=== PATIENT | male | born 1995 | race African-American/Black ===

== ENCOUNTER 2024-09-30 21:29 | Emergency (ER) | payer OTHER, SELFPAY ==
--- OUTSIDE RECORDS SUMMARY | 2024-09-30 21:31 | XMS_ITS | Encounter Summary ---
Author Organization [email or web address] Address [address] [place] [address] Care Team Providers Care Head Holder Name Role Phone Unassigned, Provider Primary Care Provider Unava ilable Reason for Visit * Reason Comments Shoulder Problem * Therapies (Routine) - Work Comp Specialty Diagnoses / Procedures Referred By Contac t Referred To Contact Physical Therapist / Physical Therapy Diagnoses WC // Lt shoulder Procedures CONSULT Clinician, Not Found, [place] [address] [place] [address] [facility] [place] [address] Phone: tel: fax: Referral ID Status Reason Start Date Expiration Date V isits Requested Visits Authorized [id number] Work Comp 09/16/2024 12/16/2025 12 12 Encounter Details Date Type Department Care Team (Late st Contact Info) Description 09/24/2024 5:00 PM CDT Therapy [facility] [address] [id number] [place] [address] [place], [place] [phone] Acute pain of left shoulder (Primary Dx) Social History Tobacco Use Types Packs/Day Years Used Date Smoking Tobacco: Never Assessed Sex and Gender Information Value Date Recorded Sex Assigned at Not on file Legal Sex Male 5:20 AM CDT Gender Identity Not on file Sexual Orientation Not on file documented as of this encounter Progress Notes * Ruddy Hardy, PT - 09/24/2024 5:00 PM CDT Physical Therapy Progress Note Visit Number: 2 Initial Certification Period: 09/16/2024 to 12/15/24 Referring Provider: Not Found Clinician Visit Diagnosis: Acute pain of left shoulder Precautions: None SUBJECTIVE: Pt is doing well and willing to participate in therapy. He states that the pain feels about the same as last time. OBJECTIVE Current Objective Findings: Mild tenderness to clavicular insertion of pec major. Still discomfort in attempting to reach behind belt. Treatment/Education Today: Manual therapy performed consisting of STM/CFM to Pec Major and Pec Minor. Joint mobilizations consisting of Posterior Flat Top and Inferior glide to Glenohumeral Joint. X10 minutes: 1 Therapeutic exercise to promote strength to rotator cuff and periscapular musculature as well as flexibility to different insertion points of pec major. 30 min: 2 In clinic: -Arm bike x 5 min -TRX row 2x10 (till fatigue). -TRX reverse fly 2x4 (till fatigue). (Supersetted with row) - Alternating concentric/eccentric sidelying external rotation with therapist resistance. 2x till fatigue -serratus wall ball circles but d/c d/t pt discomfort. HEP outlined below Timed Code Treatment Minutes: Total Treatment Minutes: 40 Current Home Exercise Program List: Access Code: [email or web address] URL: [email or web address] Date: 09/24/2024 Prepared by: Ruddy Defriend Exercises - Prone Scapular Retraction Arms at Side - 1-2 x daily - 7 x weekly - 3 sets - 10-20 reps with 3 sec hold - Isometric Shoulder External Rotation at Wall - 1-2 x daily - 7 x weekly - 5-10 sets - 10sec hold - Single Arm Doorway Pec Stretch at 90 Degrees Abduction - 1 x daily - 7 x weekly - 3 sets - 30 sec ASSESSMENT/PROGRESS TOWARD GOALS: Pt tolerated session well and demonstrated progress as he was able to tolerate STM to pec major compared to last visit, light pec stretches, and rotator cuff/periscapular strengthening. He continues to experience deficits in UE strength/activity tolerance, guarding with pain, and decreased tissue fl exibility, impairing pt's ability to perform ADLs and work without pain, compromising his overall fxn. He would continue to benefit from pt to improve deficits and overall fxn to make progress towards fxnal goals. Functional Goals/Outcomes: HEP/Independent Management: Demonstrate independence with HEP and self- management following each treatment session ADL's: Resume previous sleep pattern without awakening due to symptoms in 6 weeks. Dress, including don and doff shirt and pants with ease in 6 weeks. Reach overhead to complete household tasks with ease in 12 weeks. Work: Complete a full day of work with little to no increase in symptoms within physician restrictions in 12 weeks All progressing PLAN: STM to pec major/minor, manual and self stretching, further facilitation of rotator cuff and periscapular complexes, strengthening. documented in this encounter Plan of Treatment Upcoming Encounters Date Type Department Care Team (Late st Contact Info) Description 10/01/2024 5:00 PM CDT Appointment [facility] [address] [address] [place] [address] [place] [address] documented as of this encounter Visit Diagnoses Diagnosis Acute pain of left shoulder- Primary documented in this encounter Care Teams Head Holder Relationship Specialty Start Date End Date Unassigned, Provider [address] [place] [address] PCP - General 12/29/01 documented as of this encounter
--- OUTSIDE RECORDS SUMMARY | 2024-09-30 21:31 | XMS_ITS | Clinical Summary ---
Author Organization [facility] Address [address] [place] [address] Care Team Providers Care Diesel Locomotive Engineer Name Role Phone Unavailable Primary Care Provider Unavailabl e Allergies Active Allergy Reactions Criticality Noted Date Comments Amoxicillin Hives 12/01/2002 Azithromycin Rash 01/23/2005 Medications No known medications Active Problems Problem Noted Date Diagnosed Date Mild persistent asthma 01/22/2011 Ankle sprain and strain 10/11/2010 Intermittent asthma 08/07/2010 Obesity 01/19/2004 Overview (03/31/2015): Problem list name updated by automated process. Provider to review Attention deficit disorder 08/23/2003 Overview (03/31/2015): No longer needing treatment Problem list name updated by automated process. Provider to review Resolved Problems Problem Noted Date Diagnosed Date Resolved Date Sprain of medial collateral ligament of knee 9 09/05/2010 Pain in joint, lower leg 01/15/200701/2011 Mild intermittent asthma 04/03/200612/2010 Hypertrophy of breast 01/19/20042010 Asthma 10/05/2003 02/21/2006 Overview (03/31/2015): Problem list name updated by automated process. Provider to review Immunizations Name Administration Dates Next Due HEPA 01/22/2011,05/31/2010 HIB (PRP-T) 05/16/1994,1993,1993 ,1993 HPV 02/15/2012,07/02/2011,01/22/2011 HepB 09/16/1995,04/14/1995,02/20/1995 Historical DTP/aP 12/01/1997, 5,1993,1993, 1993 Influenza (IIV3) PF 05/31/2010,05/29/2007,2005,05/21/2003 MMR (MMRII) 12/01/1997,05/16/1994 Mantoux Tuberculin Skin Test 02/16/1994 Meningococcal ACWY (Menactra ) 09/15/2010 OPV, trivalent, live 12/01/1997,08/15/1994,03/31,08/06/1992 TD,PF 7+ (Tenivac) 01/16/2005 TDAP Vaccine (Adacel) 01/22/2011 Family History Medical History Relation Comments Cerebrovascular Disease Maternal Grandfather Hypertension Other 1 MGGrandmother Arthritis Other 2 MGGrandmother Alzheimer Disease Other 3 MGGrandfather Cerebrovascular Disease Paternal Grandfather Hypertension Paternal Grandfather Relation Status Comments Father Alive Maternal Grandfather Mother Alive Other 1 Other 2 Other 3 Paternal Grandfather Social History Tobacco Use Types Packs/Day Years Used Date Smoking Tobacco: Never Smokeless Tobacco: Never Alcohol Use Standard Drinks/Week Comments No 0 (1 standard drink = 0.6 oz pur e alcohol) Adolescent Education Answer Date Record ed Getting School Help Needed Not on file 03/24 Sex and Gender Information Value Date Recorded Sex Assigned at Not on file Legal Sex Male 4:23 AM HEAD SILVERMAN Gender Identity Not on file Sexual Orientation Not on file Last Filed Vital Signs Vital Sign Reading Time Taken Comments Blood Pressure 122/72 07/05/2020 1:03 PM HEAD SILVERMAN Pulse 96 07/05/2020 1:03 PM HEAD SILVERMAN Temperature 37.4 C (99.3 F) 07/05/2020 1:03 PM HEAD SILVERMAN Respiratory Rate 16 08/21/2012 5:42 PM HEAD SILVERMAN Oxygen Saturation 98% 01/14/2018 7:02 PM CDT Inhaled Oxygen Concentration - - Weight 140.6 kg (310 lb) 07/05/2020 1:03 PM HEAD SILVERMAN Height 177.8 cm (5' 10) 02/15/2012 10:29 AM CDT Body Mass Index 44.48 02/15/2012 10:29 AM CDT Plan of Treatment Not on file
--- OUTSIDE RECORDS SUMMARY | 2024-09-30 21:32 | XMS_ITS | Clinical Summary ---
Author Organization [facility] Address [address] [place] [address] Care Team Providers Care Heart Specialist Name Role Phone Unassigned, Provider Primary Care Provider Unava ilable Source Comments You are receiving this document as you are listed as the primary care provider,follow-up provider, or the patient has been referred to you for consultation.This is in compliance with the Medicare andGrant Hospital[facility] EHR Incentive Program,which states Providers who transition their patient to another setting of careor provider of care or refers their patient to another provider of care shouldprovide summary care record for each transition of care or referral. [facility] Encounters Date Type Department Care Team Description 09/24/2024 5:00 PM CDT Therapy [facility] [address] [address] Ruddy Hardy, PT Acute pain of left shoulder (Primary Dx) 09/16/2024 1:00 PM CDT Therapy [facility] [address] [address] Verenice Tejada, PT Acute pain of left shoulder (Primary Dx) from Last 3 Months Social History Tobacco Use Types Packs/Day Years Used Date Smoking Tobacco: Never Assessed Sex and Gender Information Value Date Recorded Sex Assigned at Not on file Legal Sex Male 5:20 AM CDT Gender Identity Not on file Sexual Orientation Not on file Plan of Treatment Upcoming Encounters Date Type Department Care Team (Late st Contact Info) Description 10/01/2024 5:00 PM CDT Appointment [facility] [address] [address] [place] [address] [place] [address] Health Maintenance Due Date Last Done Comments Hep C Screening (Preventive Services) 1993 DTaP/Tdap/Td (6 - Tdap) 01/17/2005 01/17/20, 12/01/1997, 08/15/1994, Additional history exists HIV Screening (Preventive Services) 2009 Adult Preventive Visit 2011 HepB (1) 02/12/2012 COVID-19 Vaccine ( season) 2024 Influenza (#1) 2024 Zoster/Shingles (1 of 2) 2043 IPV (Polio) Completed 12/01/1997, 08/01, 1993, Additional history exists MCV4 Completed 09/15/2010 HepA Completed 01/22/2011, 05/31/2010 HPV Vaccine Completed 02/15/2012, 08/2011, 01/22/2011 Hib Aged Out No longer eligi ble based on patient's age to complete this topic Meningococcal B Aged Out No longer el igible based on patient's age to complete this topic Pneumococcal Aged Out No longer eligi ble based on patient's age to complete this topic Insurance * Guarantor: MAREK STEVENS Account Type Relation to Patient Date of Phone Billing Address Personal/Family 1995 ([place]) [address] [place] [address] [employer] [place] Care Teams Heart Specialist Relationship Specialty Start Date End Date Unassigned, Provider [address] [place] [address] PCP - General 12/29/01
--- OUTSIDE RECORDS SUMMARY | 2024-09-30 21:32 | XMS_ITS | Encounter Summary ---
Author Organization [facility] Address [address] [facility] [place] [address] Care Team Providers Care Bander Hand Name Role Phone Eyal Avila MD Primary Care Provider Unavailable Encounter Details Date Type Department Care Team (Late st Contact Info) Description 01/26/2011 [facility] Medical Advice [facility] [id number] [place] [id number] [place] [address] [place], [place] [phone] Social History Tobacco Use Types Packs/Day Years Used Date Smoking Tobacco: Never Alcohol Use Standard Drinks/Week Comments No 0 (1 standard drink = 0.6 oz pur e alcohol) Sex and Gender Information Value Date Recorded Sex Assigned at Not on file Legal Sex Male 4:23 AM MOTH EXTERMINATOR Gender Identity Not on file Sexual Orientation Not on file documented as of this encounter Plan of Treatment Not on file documented as of this encounter Visit Diagnoses Not on filedocumented in this encounter Care Teams Bander Hand Relationship Specialty Start Date End Date Eyal Avila MD PCP - General 05/21/03 01/28/22 documented as of this encounter
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
[2024-09-30 21:34] VITALS: BP 138/91; PULSE 90; RESP 16; TEMP 36.6; O2SAT 98; BMI 44.8
--- NOTE | 2024-09-30 21:44 | CRLHL7_ITS ---
For Patients: As a result of the Century Cures Act, medical imaging exams and procedure reports are released immediately into your electronic medical record. You may view this report before your referring provider. If you have questions, please contact your health care provider. Indication: Trauma. Technique: Left foot, 3 views. Comparison: None. Findings/Impression: Bones: Alignment is normal. No displaced fractures or bone lesions. Joint spaces: Unremarkable. Soft tissues: Unremarkable. Dictated by Haile Miranda MD @ 09/30/2024 10:09:19 PM (Electronically Signed)
--- NOTE | 2024-09-30 21:44 | CRLHL7_ITS ---
For Patients: As a result of the Century Cures Act, medical imaging exams and procedure reports are released immediately into your electronic medical record. You may view this report before your referring provider. If you have questions, please contact your health care provider. Indication: Trauma. Technique: Left ankle, 3 views. Comparison: None. Findings/Impression: Bones: Alignment is normal. No displaced fractures or bone lesions. Joint spaces: Unremarkable. Soft tissues: Unremarkable. Dictated by Haile Miranda MD @ 09/30/2024 10:03:07 PM (Electronically Signed)
--- NOTE | 2024-09-30 21:53 | ED_ITS ---
HPI - Fall General Date Seen: 09/30/24 Chief Complaint: Fall/Minor Trauma Stated Complaint: fell down stairs, hurt left foot Time Seen by Provider: 09/30/24 21:33 Source: patient Mode of arrival: wheelchair Limitations: no limitations History of Present Illness HPI Narrative: Patient is a 29-year-old male presenting for left foot pain. He states he is walking on some steps when he slipped on them causing him to hurt his left foot. States his left arm got caught on the railing any hit the back of his head. This happened around 17:00. He had to run some errands afterwards started like coming immediately. Denies a headache, vision changes, weakness, numbness, photophobia, phonophobia. Denies any neurological symptoms. States his shoulder does not hurt at all anymore in his only pain is in his left foot. Initially did have some ankle pain but that has resolved. Related Data Home Medications ?Medication ?Instructions ?Recorded ?Confirmed naproxen 500 mg tablet 500 mg PO BID 09/30/24 09/30/24 Allergies Allergy/AdvReac Type Severity Reaction Status Date / Time amoxicillin Allergy Severe Verified 09/30/24 21:36 azithromycin (From Zithromax) AdvReac Verified 09/30/24 21:36 Review of Systems Status of ROS: Reports: 10 or more systems reviewed and unremarkable except as noted in History and below Exam Narrative: Exam Narrative: Const: Well-nourished, Well-developed, in mild distress Eyes: PERRL, no conjunctival injection, and symmetrical lids HENT: Atraumatic external nose and ears. Moist mucous membranes. CV: Dorsalis pedis pulse +2 bilaterally MSK:Extremities w/o deformity, Normal Active ROM, tenderness to the mid foot region on the left. No tenderness noted to rest of extremities. Skin: Warm, Dry. No rashes or lesions. Neuro: Normal Muscle tone, No focal neurological deficits. Psych: Awake, Alert, & Oriented x3. Appropriate mood and affect. Const: Vital Signs, click to edit/add: Vital Signs - 24 hr 09/30/24 21:34 Temperature 98 F Pulse Rate [Pulse Oximeter] 90 Respiratory Rate 16 Blood Pressure [Ri ght Upper Arm] 138/91 H Pulse Oximetry 98 Oxygen Delivery Me thod Room Air Course Vital Signs Vital signs: Initial Vital Signs Temperature 98 F 09/30/24 21:34 Temperature Source Temporal Artery Scan 09/30/24 21:34 Pulse Rate 90 09/30/24 21:34 Respiratory Rate 16 09/30/24 21:34 Blood Pressure 138/91 H 09/30/24 21:34 Blood Pressure Mean 106 H 09/30/24 21:34 Blood Pressure Position Sitting 09/30/24 21:34 Pulse Oximetry 98 09/30/24 21:34 Oxygen Delivery Method Room Air 09/30/24 21:34 Vital Signs Temperature 98 F 09/30/24 21:34 Pulse Rate 90 09/30/24 21:34 Respiratory Rate 16 09/30/24 21:34 Blood Pressure 138/91 H 09/30/24 21:34 Pulse Oximetry 98 09/30/24 21:34 Oxygen Delivery Method Room Air 09/30/24 21:34 Temperature 98 F 09/30/24 21:34 Pulse Rate 90 09/30/24 21:34 Respiratory Rate 16 09/30/24 21:34 Blood Pressure 138/91 H 09/30/24 21:34 Pulse Oximetry 98 09/30/24 21:34 Oxygen Delivery Method Room Air 09/30/24 21:34 MDM - Fall MDM Narrative Medical decision making narrative: Patient is a 29-year-old male presenting to the emergency department after a fall. He did hit his head but this was 4-1/2 hours ago now he is not having any neurological symptoms. Has full range of motion of his neck. I do not believe head or neck imaging is necessary. Is not having any pain or tenderness to his left shoulder. Has had able move the shoulder normally. Only pain is to his left foot. Will do an x-ray of his foot and ankle. X-rays reviewed by myself and the radiologist shows no acute abnormalities. Patient likely has a midfoot sprain. Will be discharged. He is agreeable to this plan. Imaging Data X-ray left ankle: Attestation: I have reviewed the pertinent imaging results. Radiologist's impression: Bones: Alignment is normal. No displaced fractures or bone lesions. Joint spaces: Unremarkable. Soft tissues: Unremarkable. Dictated by Haile Miranda MD @ 09/30/2024 10:03:07 PM X-ray left foot: Attestation: I have reviewed the pertinent imaging results. Radiologist's impression: Bones: Alignment is normal. No displaced fractures or bone lesions. Joint spaces: Unremarkable. Soft tissues: Unremarkable. Dictated by Haile Miranda MD @ 09/30/2024 10:09:19 PM Discharge Plan Discharge Clinical Impression: Sprain of foot, left Qualifiers: Encounter type: initial encounter Qualified Code(s): S93.602A - Unspecified sprain of left foot, initial encounter Patient Disposition: Home, Self-Care Condition: Stable Instructions: Foot Sprain (ED) Additional Instructions: Take Tylenol and ibuprofen for pain. Return to emergency department for new or worsening symptoms. Prescriptions: No Action naproxen 500 mg tablet 500 mg PO BID Follow Up/Referrals: Provider,Not a Local [Primary Care Provider] - Stand Alone Forms: [employer] Info Instructions
--- OUTSIDE RECORDS SUMMARY | 2024-09-30 22:02 | XMS_ITS | Clinical Summary ---
Author Organization [facility] Address [address] [place] [address] Care Team Providers Care English Lecturer Name Role Phone Unassigned, Provider Primary Care Provider Unava ilable Source Comments You are receiving this document as you are listed as the primary care provider,follow-up provider, or the patient has been referred to you for consultation.This is in compliance with the Medicare and[facility] Hospital[facility] EHR Incentive Program,which states Providers who transition their patient to another setting of careor provider of care or refers their patient to another provider of care shouldprovide summary care record for each transition of care or referral. [facility] Encounters Date Type Department Care Team Description 09/24/2024 5:00 PM CDT Therapy [facility] [address] [address] Ruddy Hardy, PT Acute pain of left shoulder (Primary Dx) 09/16/2024 1:00 PM CDT Therapy [facility] [address] [address] Verenice Tejada, PT Acute pain of left [...] 5:00 PM CDT Appointment [facility] [address] [address] [place] [address] [place] [address] Health Maintenance Due Date Last Done Comments [...] Date of Phone Billing Address Personal/Family 1993 ([place]) [address] [place] [address] [employer] Care Teams English Lecturer Relationship Specialty Start Date End Date Unassigned, Provider [address] [place] [address] PCP - General 12/29/01
--- OUTSIDE RECORDS SUMMARY | 2024-09-30 22:02 | XMS_ITS | Encounter Summary ---
Author Organization [facility] Address [address] [place] [address] Care Team Providers Care Floor Manager Name Role Phone Unassigned, Provider Primary Care Provider Unava ilable Reason for Visit * Reason Comments Shoulder Problem * Therapies (Routine) - Work Comp Specialty Diagnoses / Procedures Referred By Contac t Referred To Contact Physical Therapist / Physical Therapy Diagnoses WC // Lt shoulder Procedures CONSULT Clinician, Not Found, [place] [address] [place] [address] [facility] [place] [address] Phone: tel: fax: Referral ID Status Reason Start Date Expiration Date V isits Requested Visits Authorized [id number] Work Comp 09/16/2024 12/16/2025 12 12 Encounter Details Date Type Department Care Team (Late st Contact Info) Description 09/16/2024 1:00 PM CDT Therapy [facility] [address] [address] [place] [address] [facility] [place] [address] Acute pain of [...] as needed for correct performance. Access Code: [email or web address] Exercises - Supine Shoulder Horizontal Abduction with [...] 5:00 PM CDT Appointment [facility] [place] [id number] [place] [address] [place] [address] [place] [address] documented as of this encounter Visit Diagnoses Diagnosis Acute pain of left shoulder- Primary documented in this encounter Care Teams Floor Manager Relationship Specialty Start Date End Date Unassigned, Provider [address] [place] [address] PCP - General 12/29/01 documented as of this encounter
--- OUTSIDE RECORDS SUMMARY | 2024-09-30 22:02 | XMS_ITS | Encounter Summary ---
Author Organization [place] Address [address] [facility] [place] [address] Care Team Providers Care Aircraft Refueler Name Role Phone Eyal Avila MD Primary Care Provider Unavailable Encounter Details Date Type Department Care Team (Late st Contact Info) Description 01/26/2011 [facility] Medical Advice [facility] [address] [place] [id number] [place] [address] [place], [place] [phone] Social History Tobacco Use Types Packs/Day Years Used Date Smoking Tobacco: Never Alcohol Use Standard Drinks/Week Comments No 0 (1 standard drink = 0.6 oz pur e alcohol) Sex and Gender Information Value Date Recorded Sex Assigned at Not on file Legal Sex Male 4:23 AM VAT TENDER Gender Identity Not on file Sexual Orientation Not on file documented as of this encounter Plan of Treatment Not on file documented as of this encounter Visit Diagnoses Not on filedocumented in this encounter Care Teams Aircraft Refueler Relationship Specialty Start Date End Date Eyal Avila MD PCP - General 05/21/03 01/28/22 documented as of this encounter
--- OUTSIDE RECORDS SUMMARY | 2024-09-30 22:02 | XMS_ITS | Clinical Summary ---
Author Organization [place] Address [address] [facility] [address] Care Team Providers Care Eyedotter Name Role Phone Unavailable Primary Care Provider [...] on file Legal Sex Male 4:23 AM PORCELAIN WAXER Gender Identity Not on file Sexual Orientation Not on file Last Filed Vital Signs Vital Sign Reading Time Taken Comments Blood Pressure 122/72 07/05/2020 1:03 PM P[employer]CELAIN WAXER Pulse 96 07/05/2020 1:03 PM P[employer]CELAIN WAXER Temperature 37.4 C (99.3 F) 07/05/2020 1:03 PM PORCELAIN WAXER Respiratory Rate 16 08/21/2012 5:42 PM P[employer]CELAIN WAXER Oxygen Saturation 98% 01/14/2018 7:02 PM CDT Inhaled Oxygen Concentration - - Weight 140.6 kg (310 lb) 07/05/2020 1:03 PM PORCELAIN WAXER Height 177.8 cm (5' 10) 02/15/2012 10:29 AM CDT Body Mass Index 44.48 02/15/2012 10:29 AM CDT Plan of Treatment Not on file
--- OUTSIDE RECORDS SUMMARY | 2024-09-30 22:02 | XMS_ITS | Encounter Summary ---
Author Organization [facility] Address [address] [place] [address] Care Team Providers Care Esthetician/Skin Therapist Name Role Phone Unassigned, Provider Primary Care Provider Unava ilable Reason for Visit * Reason Comments Shoulder Problem * Therapies (Routine) - Work Comp Specialty Diagnoses / Procedures Referred By Contac t Referred To Contact Physical Therapist / Physical Therapy Diagnoses WC // Lt shoulder Procedures CONSULT Clinician, Not Found, [place] [address] [place] [address] [address] [place] [address] Phone: tel: fax: Referral ID Status Reason Start Date Expiration Date V isits Requested Visits Authorized [id number] Work Comp 09/16/2024 12/16/2025 12 12 Encounter Details Date Type Department Care Team (Late st Contact Info) Description 09/24/2024 5:00 PM CDT Therapy [facility] [address] [id number] [place] [address] [place], [place] [phone] Acute pain of left shoulder (Primary Dx) [...] Pec Minor. Joint mobilizations consisting of Posterior Brundidge and Inferior glide to Glenohumeral Joint. X10 [...] Current Home Exercise Program List: Access Code: [email or web address] URL: [email or web address] Date: 09/24/2024 Prepared by: Ruddy Defriend Exercises [...] 5:00 PM CDT Appointment [facility] [address] [address] [place] [address] [place] [address] documented as of this encounter Visit Diagnoses Diagnosis Acute pain of left shoulder- Primary documented in this encounter Care Teams Esthetician/Skin Therapist Relationship Specialty Start Date End Date Unassigned, Provider [address] [place] [address] PCP - General 12/29/01 documented as of this encounter
[2024-09-30 22:30] VITALS: BP 128/81; PULSE 85; RESP 16; TEMP 36.6; O2SAT 98
[2024-09-30 22:31] VITALS: BP 128/81; PULSE 85; RESP 16; TEMP 36.6
== END 2024-09-30 22:39 | disposition home or self-care (01) ==
PROVIDERS: Emergency Provider Student in an Organized Health Care Education/Training Program
DX: S93.602A Unspecified sprain of left foot, initial encounter (principal); W10.9XXA Fall (on) (from) unspecified stairs and steps, initial encounter
CPT/HCPCS: 73610; 73630; 99283